=== PATIENT | female | born 1990 | race Hispanic/Latino ===

== ENCOUNTER 2017-05-24 13:25 | Emergency (ER) | payer MEDICAID, OTHER ==
[2017-05-24 15:35] LABS: BASOPHILS % (AUTO) 0.7 % (0.0-5.0); EOSINOPHILS % (AUTO) 7.8 % (0.0-8.0); LYMPHOCYTES % (AUTO) 25.9 % (21.0-51.0); MEAN CORPUSCULAR HEMOGLOBIN 32.8 pg (27.0-33.0); MEAN CORPUSCULAR HGB CONC 34.7 g/dL (32.0-36.0); MEAN CORPUSCULAR VOLUME 94.5 fL (79-99); MONOCYTES % (AUTO) 7.2 % (3.0-13.0); NEUTROPHILS % (AUTO) 58.4 % (40.0-77.0); NUCLEATED RED BLOOD CELLS 0.1 % (0.0-0.19); PLATELET COUNT (AUTO) 224 K/uL (130-400); RED BLOOD CELL COUNT(AUTO) 4.45 MIL/uL (4.00-5.50); RED CELL DISTRIBUTION WIDTH 12.9 % (11.0-15.5); WHITE BLOOD COUNT (AUTO) 7.2 K/uL (4.8-10.8)
[2017-05-24 15:37] LABS: APPEARANCE,URINE Clear (CLEAR); BILIRUBIN,URINE Negative (NEGATIVE); COLOR,URINE Yellow (YELLOW); GLUCOSE, URINE (UA) Negative (NEGATIVE); KETONES,URINE Negative (NEGATIVE); LEUKOCYTE ESTERASE ,URINE Small (NEGATIVE); NITRATE,URINE Negative (NEGATIVE); OCCULT BLOOD,URINE Negative (NEGATIVE); PROTEIN,URINE Negative (NEGATIVE)
[2017-05-24 15:47] LABS: CREATININE 0.7 mg/dL (0.5-1.5); POTASSIUM 3.6 mmol/L (3.5-5.1)
[2017-05-24 16:23] LABS: ALBUMIN 3.9 g/dL (3.5-5.0); BILIRUBIN,DIRECT 0.1 mg/dL (0.0-0.3); BILIRUBIN,TOTAL 0.6 mg/dL (0.2-1.0); TOTAL PROTEIN, SERUM 7.5 g/dL (6.0-8.3)
[2017-05-24 16:25] LABS: BACTERIA,URINE Rare /HPF (None Seen); RBC,URINE 0-1 /HPF (0-1); SQUAMOUS EPITHELIAL CELL,UR Rare /LPF (0-2)
== END 2017-05-24 17:14 | disposition home or self-care (01) ==
LOC: EDH 13:25
DX: O26.891 Other specified pregnancy related conditions, first trimester (principal); R10.2 Pelvic and perineal pain; Z3A.01 Less than 8 weeks gestation of pregnancy
CPT/HCPCS: 36415; 76817; 80048; 80076; 81001; 83690; 84702; 85025

== ENCOUNTER 2024-04-05 13:51 | Emergency (ER) | payer MEDICAID ==
[~2024-04-05] VITALS: Ht 149.9 cm; Wt 56.2 kg
[2024-04-05 16:03] LABS: BASOPHILS # (AUTO) 0.05 K/uL (0.00-0.20); BASOPHILS % (AUTO) 0.4 % (0.0-5.0); EOSINOPHILS # (AUTO) 0.18 K/uL (0.00-0.70); EOSINOPHILS % (AUTO) 1.3 % (0.0-8.0); HEMATOCRIT 39.3 % (36-48); IMMATURE GRANULOCYTE ABSOLUTE 0.05 K/uL (0-1); LYMPHOCYTES # (AUTO) 1.6 K/uL (1.0-4.8); MEAN CORPUSCULAR HEMOGLOBIN 32.8 pg (27.0-33.0); MEAN CORPUSCULAR HGB CONC 33.6 g/dL (32.0-36.0); MEAN CORPUSCULAR VOLUME 97.5 fL (79-99); MONOCYTES # (AUTO) 0.6 K/uL (0.1-1.0); NEUTROPHILS # (AUTO) 11.8 K/uL (1.8-7.7); NEUTROPHILS % (AUTO) 82.9 % (40.0-77.0); PLATELET COUNT (AUTO) 214 K/uL (130-400); RED BLOOD CELL COUNT(AUTO) 4.03 MIL/uL (4.00-5.50); RED CELL DISTRIBUTION WIDTH 11.9 % (11.0-15.5); WHITE BLOOD COUNT (AUTO) 14.2 K/uL (4.8-10.8)
[2024-04-05 16:14] LABS: CREATININE 0.6 mg/dL (0.5-1.0); POTASSIUM 3.3 mmol/L (3.5-5.1)
--- NOTE | 2024-04-05 17:12 | NUR ---
ASSUMED CARE AT THIS TIME.
[2024-04-05 17:29] LABS: APPEARANCE,URINE CLOUDY (CLEAR); BILIRUBIN,URINE NEGATIVE (NEGATIVE); COLOR,URINE LIGHT-YELLOW (YELLOW); GLUCOSE, URINE (UA) NEGATIVE (NEGATIVE); KETONES,URINE 40 mg/dL (NEGATIVE); LEUKOCYTE ESTERASE ,URINE 500 Leu/uL (NEGATIVE); NITRATE,URINE NEGATIVE (NEGATIVE); OCCULT BLOOD,URINE LARGE (NEGATIVE); PROTEIN,URINE 10 mg/dL (NEGATIVE); UROBILINOGEN,URINE 0.2 mg/dL (0.2-1.0)
[2024-04-05 17:30] LABS: ADD UA MICROSCOPIC YES
[2024-04-05 17:35] LABS: BACTERIA,URINE MANY /HPF (None Seen); MUCUS,URINE RARE LPF (None Seen); SQUAMOUS EPITHELIAL CELL,UR FEW /HPF (0-2); WBC,URINE TNTC /HPF (0-1)
--- NOTE | 2024-04-05 18:57 | HMCIMG ---
ULTRASOUND OF THE PELVIS ULTRASOUND ABD VASCULAR LIMITED INDICATION: Vaginal bleeding COMPARISONS: None TECHNIQUE: Transabdominal real-time sonographic images were acquired earlier, and subsequently made available for review. FINDINGS: The uterus measures 8.7 x 4.7 x 6.3 cm. The uterus is normal in echotexture and contour. Single live intrauterine gestation corresponds to sonographic gestational age of 6 weeks 4 days +/- 3 days based on crown-rump length of 0.68 cm. 3.4 cm abnormal subchorionic hypoechoic area demonstrated. heart rate = 129 BPM. The right ovary measures 3.0 x 3.1 x 2.6 cm. The right ovary is normal in size, shape and echogenicity. No right adnexal masses demonstrated. Color Doppler flow is normal throughout the right ovary. Spectral Doppler analysis demonstrates a normal waveform pattern. The left ovary measures 2.4 x 1.8 x 2.3 cm. The left ovary is normal in size, shape and echogenicity. No left adnexal masses demonstrated. Color Doppler flow is normal throughout the left ovary. Spectral Doppler analysis demonstrates a normal waveform pattern. Trace physiologic amount of free fluid in the pelvis. IMPRESSION: 1. Single live intrauterine gestation corresponding to sonographic gestational age of 6 weeks 4 days +/- 3 days based on crown-rump length, and with heart rate = 129 BPM. 2. Small subchorionic hemorrhage. 3. JOSE RAUL = 11/25/2024.
[2024-04-05] MEDS ORDERED: CEPH500B PO (19:18)
--- NOTE | 2024-04-05 19:19 | ERN ---
General Chief Complaint: Vaginal Bleeding Stated Complaint: ,VAGINAL BLEEDING,CONSTIPATION Time Seen by MD: 18:00 Time Seen by Midlevel: 18:00 Source: patient History of Present Illness Initial Comments Patient is a 33-year-old female presenting to the emergency department with vaginal spotting that started earlier today. She reports taking a home test and it was positive. Allergies: Coded Allergies: No Known Drug Allergies (Unverified Allergy, Unknown, 04/05/24) Home Meds Active Scripts Cephalexin Monohydrate (Keflex) 500 Mg Cap, 500 MG PO QID for 7 Days, #28 CAP Prov:ADOLFO SANCHEZ 04/05/24 Past Medical History Past Medical History: No Pertinent History Past Surgical History: None Female( History) : 3 Para: 1 Aborts: 1 ROS Dictation CONSTITUTIONAL: Negative except for HPI HEAD/FACE: Negative except for HPI EENT: Negative except for HPI RESPIRATORY: Negative except for HPI GASTROINTESTINAL/ABDOMINAL: Negative except for HPI GENITOURINARY: Negative except for HPI MUSCULOSKELETAL: Negative except for HPI INTEGUMENTARY: Negative except for HPI NEUROLOGICAL/PSYCH: Negative except for HPI HEMATOLOGIC/LYMPHATIC: Negative except for HPI All Systems Negative, Except as noted above. 13 point review of systems assessed and all negative except for above. Physical Exam Physical Exam Dictation Vital Signs reviewed General Appearance: Alert, oriented x 3, no acute distress, well developed, nourished. Head and Face: non-traumatic. Eyes: PERRL, pink conjunctivas, eyelid no trauma, anterior chamber with arcus senilis. Ears: Pinnas intact and no signs of trauma or erythema ear canals clear and no discharge TM no erythema Nose: No discharge, no bleeding. Oropharynx: Mouth normal, tongue pink, pharynx clear,no erythema, tonsils no exudates, no abscesses noted, mucous membrane moist Neck: Supple, non-tender, no thyromegaly, no masses, no JVD, no bruits Breast:Deferred Chest:No tenderness, no crepitus, no paradoxical movement, no retractions Lungs:Clear, well-ventilated, symmetric, no rales, no wheezing, no rhonchi, no stridor, good breath sounds bilaterally Heart: Regular rate, regular rhythm, no murmur, no gallops Vascular: no peripheral edema, Abdomen: Soft, positive bowel sounds, nondistended, no guarding, nontender, no rebound, no masses no hepatomegaly, no splenomegaly, no Pina's sign, no hernias. Rectal: Deferred Genital: Deferred Neurological: Normal speech, motor function intact, sensory function intact Musculoskeletal: Neck nontender, full range of motion, back nontender, full range of motion, Extremities: nontender, full range of motion Skin: Color pink, dry, no turgor, no rash, no lacerations, no abrasions, no contusions. Lymphatic: Deferred Results Laboratory and Microbiology Lab and Micro Result Laboratory Tests Test 04/05/24 15:37 04/05/24 15:40 White Blood Count 14.2 K/uL (4.8-10.8) H Red Blood Count 4.03 MIL/uL (4.00-5.50) Hemoglobin 13.2 g/dL (12.0-16.0) Hematocrit 39.3 % (36-48) Mean Corpuscular Volume 97.5 fL (79-99) Mean Corpuscular Hemoglobin 32.8 pg (27.0-33.0) Mean Corpuscular Hemoglobin Concent 33.6 g/dL (32.0-36.0) Red Cell Distribution Width 11.9 % (11.0-15.5) Platelet Count 214 K/uL (130-400) Mean Platelet Volume 9.7 fL (7.5-10.5) Immature Granulocyte % (Auto) 0.4 % (0-1) Neutrophils (%) (Auto) 82.9 % (40.0-77.0) H Lymphocytes (%) (Auto) 11.0 % (21.0-51.0) L Monocytes (%) (Auto) 4.0 % (3.0-13.0) Eosinophils (%) (Auto) 1.3 % (0.0-8.0) Basophils (%) (Auto) 0.4 % (0.0-5.0) Neutrophils # (Auto) 11.8 K/uL (1.8-7.7) H Lymphocytes # (Auto) 1.6 K/uL (1.0-4.8) Monocytes # (Auto) 0.6 K/uL (0.1-1.0) Eosinophils # (Auto) 0.18 K/uL (0.00-0.70) Basophils # (Auto) 0.05 K/uL (0.00-0.20) Absolute Immature Granulocyte (auto 0.05 K/uL (0-1) Nucleated Red Blood Cells 0.0 % (0.0-0.19) Sodium Level 136 mmol/L (136-145) Potassium Level 3.3 mmol/L (3.5-5.1) L Chloride Level 104 mmol/L (101-111) Carbon Dioxide Level 28 mmol/L (21-32) Blood Urea Nitrogen 6 mg/dL (7-18) L Creatinine 0.6 mg/dL (0.5-1.0) Glomerular Filtration Rate Calc 123 mL/min (>90) Random Glucose 138 mg/dL (70-105) H Total Calcium 8.4 mg/dL (8.5-10.1) L Urine Color LIGHT-YELLOW (YELLOW) Urine Appearance CLOUDY (CLEAR) H Urine pH 6.0 (5.0-8.0) Urine Specific [place] 1.009 (1.001-1.031) Urine Protein 10 mg/dL (NEGATIVE) H Urine Glucose (UA) NEGATIVE mg/dL (NEGATIVE) Urine Ketones 40 mg/dL (NEGATIVE) H Urine Occult Blood LARGE (NEGATIVE) H Urine Nitrate NEGATIVE (NEGATIVE) Urine Bilirubin NEGATIVE mg/dL (NEGATIVE) Urine Urobilinogen 0.2 mg/dL (0.2-1.0) Urine Leukocyte Esterase 500 Kyleigh/uL (NEGATIVE) H Urine RBC 11-25 /HPF (0-1) H Urine WBC TNTC /HPF (0-1) H Urine Squamous Epithelial Cells FEW /HPF (0-2) Urine Bacteria MANY /HPF (None Seen) Serum Test, Qualitative POSITIVE (NEGATIVE) H Labs Reviewed?: Yes MDM MDM: Differential diagnosis: Threatened , miscarriage, 1st trimester , urinary tract infection There are no social concerns with this patient. Prescription drug management Prescriptions will include: Keflex Medical management and examination interpretation discussions were had by me with other qualified healthcare professionals as indicated for the patient's care. ED Course Orders Procedure Category Date Status Time Vital Signs Per CPOE 04/05/24 Transmitted Routine 15:04 Cbc With Differential LAB 04/05/24 Complete 15:04 Testing, LAB 04/05/24 Complete Serum Hcg 15:04 Type And Screen BBK 04/05/24 Complete 15:04 Iv Insertion CPOE 04/05/24 Transmitted 15:04 Basic Metabolic Panel LAB 04/05/24 Complete 15:04 Urinalysis Profile LAB 04/05/24 Complete 17:16 Culture Urine AMARA 04/05/24 Complete 17:30 Us Ob <14 Weeks US 04/05/24 Resulted 17:39 Ceftriaxone 1g Vial PHA 04/05/24 Complete (Rocephine 1g Inj) 19:30 Current Medications Medications (Trade) Dose Ordered Sig/Maranda Route PRN Reason Start Time Stop Time Status Last Admin Dose Admin Ceftriaxone Sodium (ROCEphine 1G INJ) 1 gm ONCE ONCE IVPB 04/05/24 19:30 04/05/24 19:31 DC 04/05/24 20:26 Vital Signs Date Time Temp Pulse Resp B/P (MAP) Pulse Ox O2 Delivery O2 Flow Rate FiO2 04/05/24 20:44 98.4 83 18 125/76 98 Room Air* 0 21 04/05/24 18:30 99.5 80 18 130/82 97 Room Air* 0 21 04/05/24 14:38 99.0 90 20 112/82 99 Room Air 0 [facility] [address] [address] IMAGING REPORT Signed PATIENT: SHANI BARTHOLOMEW MR#: [id number] : 1990 SEX: F AGE: 33 LOCATION: [facility] ORDER 39 STATUS: REG ER REPORT#: [id number] SERVICE [id number] REASON: VAGINAL BLEEDING ORDERING PHYSICIAN: SKYLAR VAZQUEZ MD PROCEDURE: OB <14 - US OB <14 WEEKS ULTRASOUND OF THE PELVIS ULTRASOUND ABD VASCULAR LIMITED INDICATION: Vaginal bleeding COMPARISONS: None TECHNIQUE: Transabdominal real-time sonographic images were acquired earlier, and subsequently made available for review. FINDINGS: The uterus measures 8.7 x 4.7 x 6.3 cm. The uterus is normal in echotexture and contour. Single live intrauterine gestation corresponds to sonographic gestational age of 6 weeks 4 days +/- 3 days based on crown-rump length of 0.68 cm. 3.4 cm abnormal subchorionic hypoechoic area demonstrated. heart rate = 129 BPM. The right ovary measures 3.0 x 3.1 x 2.6 cm. The right ovary is normal in size, shape and echogenicity. No right adnexal masses demonstrated. Color Doppler flow is normal throughout the right ovary. Spectral Doppler analysis demonstrates a normal waveform pattern. The left ovary measures 2.4 x 1.8 x 2.3 cm. The left ovary is normal in size, shape and echogenicity. No left adnexal masses demonstrated. Color Doppler flow is normal throughout the left ovary. Spectral Doppler analysis demonstrates a normal waveform pattern. Trace physiologic amount of free fluid in the pelvis. IMPRESSION: 1. Single live intrauterine gestation corresponding to sonographic gestational age of 6 weeks 4 days +/- 3 days based on crown-rump length, and with heart rate = 129 BPM. 2. Small subchorionic hemorrhage. 3. JOSE RAUL = 11/25/2024. DICTATED BY: JESSE SNYDER MD DATE: 04/05/241812 ELECTRONICALLY SIGNED BY: JESSE SNYDER MD DATE: 04/05/24 1675 DX & DISP Disposition: Discharge Departure Impression: Primary Impression: First trimester Additional Impression: Urinary tract infection Condition: Stable Scripts Cephalexin Monohydrate (Keflex) 500 Mg Cap 500 MG PO QID for 7 Days, #28 CAP Prov: ADOLFO SANCHEZ 04/05/24 Referrals: SELF,REFERRAL (PCP) I have reviewed the case, and I agree with, Diagnosis and Plan I performed the substantive portion of the visit. I have reviewed and personally made and approve the management plan that is documented in the note by myself or the QIAN. I acknowledge for responsibility for the patient's management plan. ADOLFO SANCHEZ Apr 05, 2024 19:19
[2024-04-05] MEDS: cefTRIAXone 1G VIAL IVPB ONE (20:26)
[2024-04-05 20:44] VITALS: BP 125/76; PULSE 83; RESP 18; TEMP 98.4; O2SAT 98
== END 2024-04-05 20:47 | disposition home or self-care (01) ==
LOC: EDH 13:51
DX: O23.41 Unspecified infection of urinary tract in pregnancy, first trimester (principal); N39.0 Urinary tract infection, site not specified; Z3A.01 Less than 8 weeks gestation of pregnancy; Z79.899 Other long term (current) drug therapy
CPT/HCPCS: 99285; 96374; 76801; 80048; 84703; 85025; 86850; 86900; 86901; 87086 ×2; 87186; 81001; 36415; J0696

== ENCOUNTER 2024-08-14 19:29 | Emergency (ER) | payer MEDICAID ==
[~2024-08-14] VITALS: Ht 144.8 cm; Wt 59.0 kg
[~2024-08-14 19:29] MED LIST: CEPH500B PO
--- NOTE | 2024-08-14 19:40 | ERN ---
General Chief Complaint: OB>20 weeks gest. Stated Complaint: HERNIA Time Seen by MD: 19:32 Source: patient History of Present Illness Initial Comments Patient is a 34-year-old female coming in to be evaluated for abdominal discomfort. States that she was told she had a last month. She he is currently 24 weeks . Patient states that he has been seen by Dr. Singleton. No other current complaint Allergies: Coded Allergies: No Known Drug Allergies (Unverified Allergy, Unknown, 04/05/24) Home Meds Active Scripts Cephalexin Monohydrate (Keflex) 500 Mg Cap, 500 MG PO QID for 7 Days, #28 CAP Prov:ADOLFO SANCHEZ 04/05/24 Past Medical History Past Medical History: No Pertinent History Past Surgical History: None Female( History) : 3 Para: 1 Aborts: 1 ROS Dictation CONSTITUTIONAL: No chills, no fever, no weakness, no diaphoresis, no malaise. HEAD/FACE: No signs of trauma. EENT: No eye pain, no blurred vision, no tearing, no double vision, no ear pain, no ear discharge, no nose pain, no nasal congestion, no throat pain, no throat swelling, no mouth pain. RESPIRATORY: No cough, no orthopnea, no SOB, no stridor, no wheezing. CARDIOVASCULAR: No chest pain, no edema, no palpitations, no syncope. GASTROINTESTINAL/ABDOMINAL: abdominal pain, no constipation, no diarrhea, no nausea, no vomiting. GENITOURINARY: No abnormal discharge, no dysuria, no frequent urination, no hematuria. No complaints of pain in the genitals. MUSCULOSKELETAL: No back pain, no gout, no joint pain, no joint swelling, no muscle pain, no muscle stiffness, no neck pain. INTEGUMENTARY: No change in color, no change in hair/nails, no dryness, no lesion, no lumps, no rash. NEUROLOGICAL/PSYCH: No anxiety, not depressed, no emotional problem, no headache, no numbness, no pre-existing deficit, no history of seizures, no tremors, no weakness. HEMATOLOGIC/LYMPHATIC: Not anemic, no history of blood clots, no apparent bleeding, no bruising, glands not swollen. All Systems Negative, Except as Noted. Physical Exam Physical Exam Dictation VITAL SIGNS: Reviewed. GENERAL APPEARANCE: Alert, oriented x3, no acute distress, obese. HEAD AND FACE: Non-traumatic. EYES: PERRL, pink conjunctivas, eyelid no trauma, anterior chamber clear. EARS: Pinnas intact and no signs of trauma or erythema. Ear canals clear and no discharge. TMs no erythema. NOSE: No discharge, no bleeding. OROPHARYNX: Mouth normal, teeth no caries, tongue pink. Pharynx clear, no erythema. Tonsils no exudates, no abscesses noted. Mucous membrane moist. NECK: Supple, non-tender, no thyromegaly, no masses, no JVD, no bruits. BREAST: Deferred. CHEST: No tenderness, no crepitus, no paradoxical movement, no retractions. LUNGS: Clear, well-ventilated, symmetric, no rales, no wheezing, no rhonchi, no stridor, good breath sounds bilaterally. HEART: Regular rate, regular rhythm, no murmur, no gallops. VASCULAR: No peripheral edema. ABDOMEN: Soft, positive bowel sounds, nondistended,umbilical hernia reducible RECTAL: Deferred. GENITAL: Deferred. NEUROLOGICAL: Normal speech, gross motor function intact, gross sensory function intact. MUSCULOSKELETAL: Neck nontender, full range of motion, back nontender, full range of motion. EXTREMITIES: Nontender, full range of motion. SKIN: Color pink, dry, no turgor, no rash, no lacerations, no abrasions, no contusions. LYMPHATICS: Deferred. Results Laboratory and Microbiology Labs Reviewed?: Yes EKG/XRAY/US/CT/MRI Ultrasound Comment [place] [address] [address] IMAGING REPORT Signed PATIENT: SHANI BARTHOLOMEW MR#: [id number] : 1990 SEX: F AGE: 34 LOCATION: [facility] ORDER 36 STATUS: REG REPORT#: [id number] SERVICE 35 REASON: abd wall hernia ORDERING PHYSICIAN: MICAH PRESTON MD PROCEDURE: ABD WALL - US ABD LIMITED/ABD WALL Exam Type: US ABD LIMITED/ABD WALL Clinical Information: abd wall hernia Comparison: None Findings and impression: There is an umbilical hernia containing bowel loops with peristalsis without evidence of incarceration or strangulation. DICTATED BY: CAROL WEISS MD DATE: 08/14/242007 ELECTRONICALLY SIGNED BY: CAROL WEISS MD DATE: 08/14/242011 [facility] MDM: Differential diagnosis: Umbilical hernia, , Rationale: Tests considered and ordered secondary to shared decision making include: Previous outside records reviewed: Old ER visits. Risk of complication and/or morbidity or mortality of patient management: None Patient is a 34-year-old female coming in to be evaluated for medical hernia. Patient states that she was told last month that she has a medical hernia he is pending re-evaluation by yard supervisor [employer]. She states that days ago she started having a little bit more discomfort in the umbilical area in his here for further evaluation. heart tones 155, abdominal binder in place. ED Course Orders Procedure Category Date Status Time Us Abd Limited/Abd US 08/14/24 Resulted Wall 19:36 Vital Signs Date Time Temp Pulse Resp B/P (MAP) Pulse Ox O2 Delivery O2 Flow Rate FiO2 08/14/24 19:31 98.2 92 20 135/85 99 Room Air DX & DISP Disposition: Discharge Departure Impression: Primary Impression: Umbilical hernia Additional Impression: 1, not currently Condition: Stable Additional Instructions: FOLLOW-UP WITH PRIMARY CARE PROVIDER IN 1 TO 2 DAYS. TAKE MEDICATIONS DIRECTED HERE IN THE EMERGENCY ROOM. OKAY TO CONTINUE HOME MEDICATIONS UNLESS OTHERWISE DISCUSSED DURING YOUR VISIT IN THE EMERGENCY ROOM TODAY. RETURN TO YOUR NEAREST EMERGENCY ROOM IF SYMPTOMS WORSEN OR IF THERE IS NO IMPROVEMENT. CALL 911 IF YOU NEED IMMEDIATE ASSISTANCE. TAKE TYLENOL [id number] NEEDED AND IF NO CONTRAINDICATIONS ARE PRESENT. INCREASE ORAL HYDRATION. A WOUND CULTURE OR URINE CULTURE WAS ORDERED HERE IN THE EMERGENCY ROOM DEPARTMENT PLEASE FOLLOW-UP WITH PRIMARY CARE PROVIDER AND ADVISE THEM TO GET REPEAT PORTS FROM OUR FACILITY. IF YOU HAD ANY JESSIE WRAP/SPLINTS THAT WERE APPLIED HERE, PLEASE DO NOT REMOVE THEM UNTIL YOU SEE YOUR PRIMARY CARE OR SPECIALTY. Referrals: Referrals: SELF,REFERRAL (PCP) TOD SINGLETON MD Time of Disposition: 21:00 MICAH PRESTON MD August 14, 2024 19:40
--- NOTE | 2024-08-14 20:12 | HMCIMG ---
Exam Type: US ABD LIMITED/ABD WALL Clinical Information: abd wall hernia Comparison: None Findings and impression: There is an umbilical hernia containing bowel loops with peristalsis without evidence of incarceration or strangulation.
--- NOTE | 2024-08-14 20:52 | NUR ---
HEART TONES OBTAINED AT THIS TIME WITH DOPPLER, 155 BPM.
[2024-08-14 21:01] VITALS: BP 135/84; PULSE 87; RESP 19; TEMP 98.3; O2SAT 99
--- NOTE | 2024-08-14 21:03 | NUR ---
ABDOMINAL BINDER APPLIED AT THIS TIME./ELL[place]OTT
== END 2024-08-14 21:08 | disposition home or self-care (01) ==
LOC: EDH 19:29
DX: O99.612 Diseases of the digestive system complicating pregnancy, second trimester (principal); K42.9 Umbilical hernia without obstruction or gangrene; Z3A.24 24 weeks gestation of pregnancy
CPT/HCPCS: 76705; 99284